=== PATIENT | male | born 1930 | race Caucasian/White ===

== ENCOUNTER → 2017-10-05 | Outpatient (CLI) | payer MEDICARE, OTHER ==
[~2017-10-05] MED LIST: ECASA PO; ENOX100P SQ; WARF5 PO
[2017-10-05 15:50] LABS: AUTOMATED NEUTROPHIL # 2.8 TH/MM3 (1.8-7.7); BASOPHIL # 0.1 TH/MM3 (0-0.2); BASOPHIL % 0.7 % (0.0-2.0); EOSINOPHIL # 0.1 TH/MM3 (0-0.4); EOSINOPHIL % 1.8 % (0.0-4.0); HEMATOCRIT 43.4 % (39.0-51.0); HEMOGLOBIN 14.6 GM/DL (13.0-17.0); LYMPHOCYTE # 4.1 TH/MM3 (1.0-4.8); MEAN CORPUSCULAR HEMOGLOBIN 30.6 PG (27.0-34.0); MEAN CORPUSCULAR HGB CONC 33.7 % (32.0-36.0); MEAN PLATELET VOLUME 10.2 FL (7.0-11.0); MONO % 13.4 % (0.0-8.0); MONOCYTE # 1.1 TH/MM3 (0-0.9); NEUT % 34.1 % (16.0-70.0); PLATELET COUNT 268 TH/MM3 (150-450); RED BLOOD COUNT 4.76 MIL/MM3 (4.50-5.90); RED CELL DISTRIBUTION WIDTH 15.3 % (11.6-17.2); WHITE BLOOD COUNT 8.3 TH/MM3 (4.0-11.0)
[2017-10-05 16:11] LABS: ALBUMIN 3.9 GM/DL (3.4-5.0); ALT (GPT) 23 U/L (12-78); AST (GOT) 28 U/L (15-37); BICARBONATE 23.1 MEQ/L (21.0-32.0); BLOOD UREA NITROGEN 28 MG/DL (7-18); CALCIUM 9.2 MG/DL (8.5-10.1); CHLORIDE 109 MEQ/L (98-107); CREATININE 1.57 MG/DL (0.60-1.30); GLOMERULAR FILTRATION RATE 42 ML/MIN (>89); GLUCOSE,FASTING 96 MG/DL (74-99); SODIUM (NA) 141 MEQ/L (136-145)
[2017-10-05 16:21] LABS: ALKALINE PHOSPHATASE 75 U/L (45-117); TOTAL BILIRUBIN ADULT 0.6 MG/DL (0.2-1.0)
== END ==
LOC: PLAB 10:06
PROVIDERS: ATTEND Family Medicine
DX: I48.91 Unspecified atrial fibrillation (principal); Z51.81 Encounter for therapeutic drug level monitoring
CPT/HCPCS: 36415; 80053; 84443; 85025

== ENCOUNTER 2018-05-04 17:03 | Inpatient (IN) ==
[2018-05-04] MEDS ORDERED: dilTIAZem Inj 125 MG in Sodium Chlor 0.9% Inj 100 ML IV.CONT PRN (18:43)
--- NOTE | 2018-05-04 18:49 | ED ---
HPI General Chief complaint: Extremity Problem,Nontraumatic Stated complaint: Rt arm pain Time Seen by Provider: 05/04/18 18:27 Source: patient Mode of arrival: ambulatory Limitations: no limitations History of Present Illness HPI Narrative: 87-year-old male with history of atrial fibrillation on Savaysa presents to the emergency department evaluation of pain and swelling to the right elbow that started today. He states the elbow is painful and has difficulty moving. Denies trauma but is unsure. Denies fever, chills, numbness or tingling of the extremity. MD Complaint: Reports extremity pain, joint swelling and joint paint Pain Consistency: constant Location: Reports right Quality: Reports aching Radiation: Reports none Relieving factors: immobilization Exacerbating factors: range of motion and palpation Associated symptoms: Reports denies other symptoms Related Data Home Medications Medication Instructions Recorded Confirmed acetaminophen [Tylenol Extra 500 mg PO Q4-6H PRN 05/04/18 05/04/18 Strength] edoxaban [Savaysa] 30 mg PO DAILY 05/04/18 05/04/18 losartan 50 mg PO DAILY 05/04/18 05/04/18 Allergies Allergy/AdvReac Type Severity Reaction Status Date / Time naproxen Allergy Severe Hypotension Verified 05/04/18 17:17 aspirin Allergy Mild Hypotension Verified 05/04/18 17:17 ALEVE Allergy Severe Hypotension Uncoded 05/04/18 17:17 Review of Systems ROS: all other systems reviewed are negative PMFSH Medical History Medical History Adrenal carcinoma (Acute) Arrhythmia (Acute) Atrial fibrillation (Acute) Hypertension (Acute) Lung cancer (Acute) Pulmonary asbestosis (Acute) Surgical History Surgical History Hx of total adrenalectomy (Acute) History of lung biopsy (Acute) History of tonsillectomy (Acute) Family History Family History Other Family history normal Social History Social History Substance History: No History of Abuse Smoking Status: Former smoker Tobacco Type: Cigarettes How Often Do You Have a Drink Containing Alcohol: Never Recent Travel in [place] within the Last 8 Weeks: No Recent Out of Country Travel within the Last 8 Weeks: No Immunization History Tetanus Immunization: Unsure Exam Narrative Exam Narrative: GENERAL: Well-developed, well-nourished in no apparent distress SKIN: Focused skin assessment warm/dry. HEAD: Atraumatic. Normocephalic. EYES: Pupils equal and round. No scleral icterus. No injection or drainage. ENT: No nasal bleeding or discharge. Mucous membranes pink and moist. NECK: Trachea midline. No JVD. CARDIOVASCULAR: Regular rate and rhythm. No murmur appreciated. RESPIRATORY: No accessory muscle use. Clear to auscultation. Breath sounds equal bilaterally. MUSCULOSKELETAL: No obvious deformities. No clubbing. No cyanosis. No edema. right elbow- erythema and tenderness of the olecranon process, motor and sensory normal. Limited flexion secondary to pain NEUROLOGICAL: Awake and alert. No obvious cranial nerve deficits. Motor grossly within normal limits. Normal speech. PSYCHIATRIC: Appropriate mood and affect; insight and judgment normal. Course Initial Documented Vital Signs Temperature 98.2 F 05/04/18 17:14 Pulse Rate 67 05/04/18 17:14 Respiratory Rate 20 05/04/18 17:14 Blood Pressure 191/89 H 05/04/18 17:14 Pulse Oximetry 96 05/04/18 17:14 Last Documented Vital Signs Temperature 98.2 F 05/04/18 17:14 Pulse Rate 68 05/04/18 21:46 Respiratory Rate 19 05/04/18 21:48 Blood Pressure 151/77 H 05/04/18 21:46 Pulse Oximetry 100 05/04/18 21:08 Medical Decision Making MDM Narrative Medical decision making narrative: 87-year-old male presents to the emergency department evaluation of a painful elbow that started today. He states he woke up and started having pain in his right elbow. As patient was being evaluated, it was noted that his heart rate was between 115 and 150 bpm and regular. Patient states he has a history of atrial fibrillation and often goes in an out of A fib. Patient denies chest pain or shortness of breath. I had a discussion with the family who stated he has not seen a patient service coordinator in approximately 3 years and his primary care physician, Dr. Albino Haas prescribes Savaysa. He denies history of ablation, MD. Administered diltiazem 20mg and started diltiazem drip at 10. Pt converted to sinus rhythm to rate 60-70 while discussing the plan. Discussed with my attending who recommended r/o of septic arthritis but more likely a hemarthrosis vs contusion of the right elbow. Labs are notable for WBC 14.8, BUN/Cr 24/1.51, ESR 14. Elbow xray without acute process. No evidence of joint effusion. Will admit patient for Paroxysmal a fib and right elbow pain. Medical Screen Exam Complete: Yes Emergency Medical Condition: Yes Differential Diagnosis Differential Diagnosis: Hemarthrosis, septic arthritis, olecranon bursitis Lab Data Result diagrams: 05/04/18 18:45 05/04/18 18:45 Lab Results 05/04/18 05/04/18 05/04/18 Range/Units 18:45 18:45 18:45 WBC 14.8 H (4.0-11.0) th/mm3 RBC 4.91 (4.50-5.90) mil/mm3 Hgb 15.1 (13.0-17.0) gm/dL Hct 45.0 (39.0-51.0) % MCV 91.7 (80.0-100.0) fL MCH 30.7 (27.0-34.0) pg MCHC 33.5 (32.0-36.0) % RDW 15.0 (11.6-17.2) % Plt Count 268 (150-450) th/mm3 MPV 9.6 (7.0-11.0) fL Prelim Diff (Auto) Slide review pending Neut % (Auto) 62.9 (16.0-70.0) % Lymph % (Auto) 18.4 (9.0-44.0) % [place] % (Auto) 17.7 H (0.0-8.0) % Eos % (Auto) 0.2 (0.0-4.0) % Baso % (Auto) 0.8 (0.0-2.0) % Neut # (Auto) 9.3 H (1.8-7.7) th/mm3 Lymph # (Auto) 2.7 (1.0-4.8) th/mm3 [place] # (Auto) 2.6 H (0.0-0.9) th/mm3 Eos # (Auto) 0.0 (0.0-0.4) th/mm3 Baso # (Auto) 0.1 (0.0-0.2) th/mm3 WBC Differential . Diff Scan Auto diff confirmed Differential Comment . Platelet Estimate Normal (Normal) Platelet Morphology Normal (Normal) RBC Morphology Normal (Normal) ESR (0-20) mm/hr PT 11.8 H (9.8-11.6) sec INR 1.2 Ratio APTT 36.4 H (24.3-30.1) sec Sodium 133 L (136-145) meq/L Potassium 4.6 (3.5-5.1) meq/L Chloride 102 (98-107) meq/L Carbon Dioxide 22.2 (21.0-32.0) meq/L Anion Gap 9 (5-15) meq/L BUN 24 H (7-18) mg/dL Creatinine 1.51 H (0.60-1.30) mg/dL Estimated GFR 44 L (>89) mL/min Random Glucose 119 H (74-106) mg/dL Calcium 9.6 (8.5-10.1) mg/dL Total Bilirubin 0.7 (0.2-1.0) mg/dL AST 29 (15-37) U/L ALT 35 (12-78) U/L Alkaline Phosphatase 99 (45-117) U/L Total Protein 9.1 H (6.4-8.2) g/dL Albumin 3.9 (3.4-5.0) g/dL 05/04/18 Range/Units 18:45 WBC (4.0-11.0) th/mm3 RBC (4.50-5.90) mil/mm3 Hgb (13.0-17.0) gm/dL Hct (39.0-51.0) % MCV (80.0-100.0) fL MCH (27.0-34.0) pg MCHC (32.0-36.0) % RDW (11.6-17.2) % Plt Count (150-450) th/mm3 MPV (7.0-11.0) fL Prelim Diff (Auto) Neut % (Auto) (16.0-70.0) % Lymph % (Auto) (9.0-44.0) % [place] % (Auto) (0.0-8.0) % Eos % (Auto) (0.0-4.0) % Baso % (Auto) (0.0-2.0) % Neut # (Auto) (1.8-7.7) th/mm3 Lymph # (Auto) (1.0-4.8) th/mm3 [place] # (Auto) (0.0-0.9) th/mm3 Eos # (Auto) (0.0-0.4) th/mm3 Baso # (Auto) (0.0-0.2) th/mm3 WBC Differential Diff Scan Differential Comment Platelet Estimate (Normal) Platelet Morphology (Normal) RBC Morphology (Normal) ESR 14 (0-20) mm/hr PT (9.8-11.6) sec INR Ratio APTT (24.3-30.1) sec Sodium (136-145) meq/L Potassium (3.5-5.1) meq/L Chloride (98-107) meq/L Carbon Dioxide (21.0-32.0) meq/L Anion Gap (5-15) meq/L BUN (7-18) mg/dL Creatinine (0.60-1.30) mg/dL Estimated GFR (>89) mL/min Random Glucose (74-106) mg/dL Calcium (8.5-10.1) mg/dL Total Bilirubin (0.2-1.0) mg/dL AST (15-37) U/L ALT (12-78) U/L Alkaline Phosphatase (45-117) U/L Total Protein (6.4-8.2) g/dL Albumin (3.4-5.0) g/dL Imaging Data Radiologist's impression: Elbow X-Ray 05/04/18 18:39 CONCLUSION: Osteoarthritis and osteopenia. No acute abnormality. Discharge Plan Discharge Disposition Patient Disposition: 30 Still Patient Discharge Condition Condition: Stable Discharge Details Diagnosis: Elbow pain, PAF (paroxysmal atrial fibrillation) Physicians Team ED Provider: Lino Mcgee ED Midlevel Provider: Hazel Alba Primary Care Provider: Alek Muñoz Attending Provider: Lashanda Youssef Discharge Interventions Interventions: Vital Signs Last Done: 05/04/18 21:46 Status ED Status: Admitted Patient
[2018-05-04 18:52] LABS: Baso # (Auto) 0.1 th/mm3 (0.0-0.2); Baso % (Auto) 0.8 % (0.0-2.0); Eos % (Auto) 0.2 % (0.0-4.0); Hemoglobin 15.1 gm/dL (13.0-17.0); Lymph # (Auto) 2.7 th/mm3 (1.0-4.8); Lymph % (Auto) 18.4 % (9.0-44.0); Mean Corpuscular HGB Conc 33.5 % (32.0-36.0); Mean Corpuscular Hemoglobin 30.7 pg (27.0-34.0); Mean Corpuscular Volume 91.7 fL (80.0-100.0); Mean Platelet Volume 9.6 fL (7.0-11.0); Mono # (Auto) 2.6 th/mm3 (0.0-0.9); Mono % (Auto) 17.7 % (0.0-8.0); Neut # (Auto) 9.3 th/mm3 (1.8-7.7); Neut % (Auto) 62.9 % (16.0-70.0); Platelet Count 268 th/mm3 (150-450); Red Blood Count 4.91 mil/mm3 (4.50-5.90); White Blood Count 14.8 th/mm3 (4.0-11.0)
[2018-05-04 19:04] LABS: Activated Partial Thrombo Time 36.4 sec (24.3-30.1); INR 1.2 Ratio; Prothrombin Time 11.8 sec (9.8-11.6)
--- NOTE | 2018-05-04 19:16 | XR ---
EXAM DATE: 05/04/2018 6:39 PM EDT AGE/SEX: 87 years / Male INDICATIONS: Pain and swelling in right elbow. CLINICAL DATA: This is the patient's initial encounter. Patient reports that signs and symptoms have been present for 1 day and indicates a pain score of 10/10. MEDICAL/SURGICAL HISTORY: None. None. COMPARISON: No prior exams available for comparison. FINDINGS: 3 views of the right elbow reveal advanced degenerative changes including osteophyte production. No f racture or dislocation. No joint effusion. Soft tissues are unremarkable. Osteopenia noted. CONCLUSION: Osteoarthritis and osteopenia. No acute abnormality. Electronically signed by: Charles Hand MD 05/04/2018 7:14 PM EDT
[2018-05-04 19:24] LABS: Platelet Estimate Normal (Normal); Platelet Morphology Normal (Normal); RBC Morphology Normal (Normal)
[2018-05-04 19:37] LABS: Albumin 3.9 g/dL (3.4-5.0); Anion Gap 9 meq/L (5-15); Aspartate Aminotransferase 29 U/L (15-37); Blood Urea Nitrogen 24 mg/dL (7-18); Calcium 9.6 mg/dL (8.5-10.1); Carbon Dioxide 22.2 meq/L (21.0-32.0); Chloride 102 meq/L (98-107); Glomerular Filtration Rate 44 mL/min (>89); Glucose,Random 119 mg/dL (74-106); Potassium 4.6 meq/L (3.5-5.1); Sodium 133 meq/L (136-145)
[2018-05-04 19:39] LABS: Alanine Aminotransferase 35 U/L (12-78); Alkaline Phosphatase 99 U/L (45-117); Total Protein 9.1 g/dL (6.4-8.2)
[2018-05-04] MEDS ORDERED: Acetaminophen 325 MG Tablet PO PRN (23:04)
[2018-05-04] MEDS ORDERED: Bisacodyl 10 MG Supp RECTAL PRN (23:04)
[2018-05-04] MEDS ORDERED: Heparin - SQ 10,000 UNITS/ML Vial SQ SCH (23:15)
--- NOTE | 2018-05-04 23:16 | P.HP ---
History of Present Illness Service: [facility] Primary Care Physician: Alek Muñoz MD History of Present Illness: 87-year-old male with a past medical history significant for atrial fibrillation anticoagulated on Savaysa, hypertension, history of adrenal cancer and newly diagnosed lung cancer undergoing treatment at [facility] (has not yet started chemotherapy) presents to the emergency department for evaluation of right upper extremity pain. The patient reports that when he awoke this morning his right arm was fine and that shortly after waking he started to develop a deep pain in his right upper extremity that is worse between the wrist and the elbow. He states the pain is worse with movement. It is tender to palpation. On arrival to the emergency department, the patient was found to be in atrial fibrillation with rapid ventricular response. He endorses associated heart palpitations. Denies chest pain or shortness of breath. 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 No abdominal pain. No nausea/vomiting/diarrhea. No lateralizing signs/symptoms. No fever/chills. Inpatient Certification: I certify that the inpatient services were ordered in accordance with Medicare regulations governing the order. This includes certification that hospital inpatient services are reasonable and necessary and in the case of services not specified as inpatient-only under 42 CFR 419.22(n), that they are appropriately provided as inpatient services in accordance to with the 2-midnight benchmark under 43 CFR 412.3(e) Estimated Total Length of Stay (Days): 2 Plans for Post Hospital Care: Not yet determined Review of Systems All other systems reviewed negative except as stated in HPI [facility] - History History Provided By: Patient - Medical History Medical History: Medical History (Last Reviewed 05/04/18 @ 23:10 by Lashanda Youssef MD) Adrenal carcinoma Arrhythmia Atrial fibrillation Hypertension Lung cancer Pulmonary asbestosis - Surgical History Surgical History: Surgical History (Last Updated 05/04/18 @ 23:11 by Lashanda Youssef MD) Hx of total adrenalectomy History of lung biopsy History of tonsillectomy - Family History Family History: Family History (Last Updated 05/04/18 @ 23:11 by Lashanda Youssef MD) Other Family history normal - Tobacco History Smoking Status: Former smoker Tobacco Type: Cigarettes - Alcohol History How Often Do You Have a Drink Containing Alcohol: Never - Substance Use History Substance History: No History of Abuse - Travel History Recent Travel in the [place] Within the Last 8 Weeks: No Recent Travel Out of the Country Within the Last 8 Weeks: No - Immunization History Tetanus Immunization: Unsure Medications and Allergies Active Medications: Active Medications Acetaminophen (Tylenol) 650 mg PO Q4H PRN PRN Reason: Temp > 100.4 Al Hydroxide/Mg Hydroxide (Milk Of Magnesia Liq) 30 ml PO Q12H PRN PRN Reason: Mild Constipation Bisacodyl (Dulcolax Supp) 10 mg RECTAL DAILY PRN PRN Reason: SEVERE CONSITIPATION Edoxaban (Savaysa) 30 mg PO DAILY [facility] Heparin Sodium (Porcine) (Heparin Inj) 5,000 units SQ Q8H CHANTELLE Diltiazem HCl 125 mg/ Sodium (Chloride) 125 mls @ 5 mls/hr IV.CONT TITRATE PRN ; Protocol PRN Reason: Per Protocol Last Titration: 05/04/18 21:49 Dose: 0 mg/hr, 0 mls/hr Lactulose (Lactulose Liq) 30 ml PO DAILY PRN PRN Reason: SEVERE CONSITIPATION Losartan Potassium (Cozaar) 50 mg PO DAILY [facility] Metoprolol Tartrate (Lopressor) 12.5 mg PO BID [facility] Ondansetron HCl (Zofran Inj) 4 mg IV.PUSH Q6H PRN PRN Reason: NAUSEA OR VOMITING Oxycodone/Acetaminophen (Percocet 5/325 Mg) 1 tab PO Q4H PRN PRN Reason: pain 6-10 Senna/Docusate Sodium (Rafaela-Colace) 1 tab PO BID [facility] Sennosides (Senokot) 17.2 mg PO Q12H PRN PRN Reason: Moderate Constipation Allergies Allergy/AdvReac Type Severity Reaction Status Date / Time naproxen Allergy Severe Hypotension Verified 05/04/18 17:17 aspirin Allergy Mild Hypotension Verified 05/04/18 17:17 ALEVE Allergy Severe Hypotension Uncoded 05/04/18 17:17 Home Medications Medication Instructions Recorded Confirmed Type acetaminophen [Tylenol Extra 500 mg PO Q4-6H PRN 05/04/18 05/04/18 History Strength] edoxaban [Savaysa] 30 mg PO DAILY 05/04/18 05/04/18 History losartan 50 mg PO DAILY 05/04/18 05/04/18 History Exam Vital signs: Vital Signs 05/04/18 17:14 05/04/18 18:11 05/04/18 19:09 Temperature 98.2 F Pulse Rate 67 137 H 149 H Respiratory Rate 20 21 18 Blood Pressure 191/89 H 160/84 H Pulse Oximetry 96 87 L 97 05/04/18 21:08 05/04/18 21:46 05/04/18 21:48 Temperature Pulse Rate 71 68 Respiratory Rate 18 19 Blood Pressure 159/78 H 151/77 H Pulse Oximetry 100 Intake & Output 05/04/18 05/04/18 05/05/18 06:59 18:59 06:59 Weight 88.451 kg Narrative: Gen.: No acute distress Head: Normocephalic. Atraumatic. EENT: Pupils equal round and reactive to light. Nose without drainage. Airway intact. Throat without injection. Cardiovascular: Regular rate. Irregularly irregular rhythm. No murmurs, rubs or gallops. Respiratory: Lungs clear to auscultation bilaterally. No wheezes or rhonchi. Abdomen: Soft, nontender, nondistended. No peritoneal signs. Musculoskeletal: No gross deformities. No edema. Right upper extremity extremely tender to palpation worse near the wrist. Skin: No obvious rashes or erythema. Neuro: Sensory and motor grossly intact. Cranial nerves II through XII grossly intact. Results - Labs CBC & Chem 7: 05/04/18 18:45 05/04/18 18:45 Labs: Laboratory Results - last 24 hr 05/04/18 05/04/18 05/04/18 18:45 18:45 18:45 WBC 14.8 H RBC 4.91 Hgb 15.1 Hct 45.0 MCV 91.7 MCH 30.7 MCHC 33.5 RDW 15.0 Plt Count 268 MPV 9.6 Prelim Diff (Auto) Slide review pending Neut % (Auto) 62.9 Lymph % (Auto) 18.4 [place] % (Auto) 17.7 H Eos % (Auto) 0.2 Baso % (Auto) 0.8 Neut # (Auto) 9.3 H Lymph # (Auto) 2.7 [place] # (Auto) 2.6 H Eos # (Auto) 0.0 Baso # (Auto) 0.1 WBC Differential . Diff Scan Auto diff confirmed Differential Comment . Platelet Estimate Normal Platelet Morphology Normal RBC Morphology Normal ESR PT 11.8 H INR 1.2 APTT 36.4 H Sodium 133 L Potassium 4.6 Chloride 102 Carbon Dioxide 22.2 Anion Gap 9 BUN 24 H Creatinine 1.51 H Estimated GFR 44 L Random Glucose 119 H Calcium 9.6 Total Bilirubin 0.7 AST 29 ALT 35 Alkaline Phosphatase 99 Total Protein 9.1 H Albumin 3.9 05/04/18 18:45 WBC RBC Hgb Hct MCV MCH MCHC RDW Plt Count MPV Prelim Diff (Auto) Neut % (Auto) Lymph % (Auto) [place] % (Auto) Eos % (Auto) Baso % (Auto) Neut # (Auto) Lymph # (Auto) [place] # (Auto) Eos # (Auto) Baso # (Auto) WBC Differential Diff Scan Differential Comment Platelet Estimate Platelet Morphology RBC Morphology ESR 14 PT INR APTT Sodium Potassium Chloride Carbon Dioxide Anion Gap BUN Creatinine Estimated GFR Random Glucose Calcium Total Bilirubin AST ALT Alkaline Phosphatase Total Protein Albumin - Imaging Impressions Elbow X-Ray 05/04/18 18:39 CONCLUSION: Osteoarthritis and osteopenia. No acute abnormality. Caprini VTE Risk Assessment Caprini VTE Risk Assessment: Moderate/High Risk (score >= 2) Caprini Risk Assessment Model: Point Value = 1 Point Value = 2 Point Value = 3 Point Value = 5 Age 41-60 Minor surgery BMI > 25 kg/m2 Swollen legs Varicose veins or History of unexplained or recurrent spontaneous Oral contraceptives or hormone replacement Sepsis (< 1 month) Serious lung disease, including pneumonia (< 1 month) Abnormal pulmonary function Acute myocardial infarction Congestive heart failure (< 1 month) History of inflammatory bowel disease Medical patient at bed rest Age 61-74 Arthroscopic surgery Major open surgery (> 45 min) Laparoscopic surgery (> 45 min) Malignancy Confined to bed (> 72 hours) Immobilizing plaster cast Central venous access Age >= 75 History of VTE Family history of VTE Factor V Leiden Prothrombin [id number] Lupus anticoagulant Anticardiolipin antibodies Elevated serum homocysteine Heparin-induced thrombocytopenia Other congenital or acquired thrombophilia Stroke (< 1 month) Elective arthroplasty Hip, pelvis, or leg fracture Acute spinal cord injury (< 1 month) Prophylaxis Regimen: Total Risk Factor Score Risk Level Prophylaxis Regimen 0-1 Low Early ambulation 2 Moderate Order ONE of the following: *Sequential Compression Device (SCD) *Heparin 5000 units SQ BID 3-4 Higher Order ONE of the following medications: *Heparin 5000 units SQ TID *Enoxaparin/Lovenox 40 mg SQ daily (WT < 150 kg, CrCl > 30 mL/min) *Enoxaparin/Lovenox 30 mg SQ daily (WT < 150 kg, CrCl > 10-29 mL/min) *Enoxaparin/Lovenox 30 mg SQ BID (WT < 150 kg, CrCl > 30 mL/min) AND/OR *Sequential Compression Device (SCD) 5 or more Highest Order ONE of the following medications: *Heparin 5000 units SQ TID (Preferred with Epidurals) *Enoxaparin/Lovenox 40 mg SQ daily (WT < 150 kg, CrCl > 30 mL/min) *Enoxaparin/Lovenox 30 mg SQ daily (WT < 150 kg, CrCl > 10-29 mL/min) *Enoxaparin/Lovenox 30 mg SQ BID (WT < 150 kg, CrCl > 30 mL/min) AND *Sequential Compression Device (SCD) Assessment and Plan - Plan Assessment/plan: 1. Atrial fibrillation with rapid ventricular response EKG significant for A. fib with RVR, pulse 135, right bundle branch block, no ST segment elevation or depression, personally reviewed Diltiazem bolus and drip, weaned in the ED for a heart rate of 60 Continue home Savaysa Start metoprolol 12.5 mg twice daily Telemetry 2. Right upper extremity pain Elbow x-ray negative for acute process, significant for osteoarthritis and osteopenia Forearm x-ray, right upper extremity ultrasound pending Percocet 3. Hypertension Continue home losartan 4. Kidney disease Creatinine 1.51, baseline Monitor renal function FEN Heart healthy diet Electrolytes: Monitor and replete as needed Savaysa
[2018-05-04] MEDS ORDERED: Sodium Chloride 0.9% 2 ML Flush PRN IV.FLUSH (23:26)
--- NOTE | 2018-05-04 23:45 | XR ---
EXAM DATE: 05/04/2018 11:07 PM EDT AGE/SEX: 87 years / Male INDICATIONS: Right forearm pain, no known trauma. CLINICAL DATA: This is the patient's initial encounter. Patient reports that signs and symptoms have been present for 1 day and indicates a pain score of 8/10. MEDICAL/SURGICAL HISTORY: None. None. COMPARISON: No prior exams available for comparison. FINDINGS: The radius and ulna appear grossly intact. The elbow and wrist joints are aligned. There are some hyp ertrophic change at the elbow region. There also appears to be some hypertrophic change at the first carpometacarpal region. No foreign body is seen. CONCLUSION: No acute abnormality is seen. Electronically signed by: Dave Baig MD 05/04/2018 11:44 PM EDT
[2018-05-05 06:21] LABS: Calcium 8.9 mg/dL (8.5-10.1); Carbon Dioxide 21.6 meq/L (21.0-32.0); Potassium 4.2 meq/L (3.5-5.1)
--- NOTE | 2018-05-05 06:41 | ECG ---
Date Performed: 05/04/2018 Time Performed: 20:01:00 PTAGE: 87 years EKG: Sinus rhythm RIGHT BUNDLE BRANCH BLOCK LEFT ANTERIOR FASCICULAR BLOCK ABNORMAL ECG Compared to prior electrocardi ogram, sinus rhythm has replaced probable atrial fibrillation with rapid response. DOCTOR: Fransisco Lee Interpretating Date/Time 05/05/2018 06:39:27
[2018-05-05 06:43] LABS: Baso # (Auto) 0.1 th/mm3 (0.0-0.2); Baso % (Auto) 0.5 % (0.0-2.0); Eos % (Auto) 0.1 % (0.0-4.0); Hematocrit 40.7 % (39.0-51.0); Hemoglobin 13.6 gm/dL (13.0-17.0); Lymph # (Auto) 4.1 th/mm3 (1.0-4.8); Lymph % (Auto) 23.5 % (9.0-44.0); Mean Corpuscular HGB Conc 33.4 % (32.0-36.0); Mean Corpuscular Hemoglobin 30.9 pg (27.0-34.0); Mean Corpuscular Volume 92.5 fL (80.0-100.0); Mean Platelet Volume 9.8 fL (7.0-11.0); Mono # (Auto) 5.7 th/mm3 (0.0-0.9); Neut # (Auto) 7.4 th/mm3 (1.8-7.7); Neut % (Auto) 42.9 % (16.0-70.0); Platelet Count 237 th/mm3 (150-450); White Blood Count 17.3 th/mm3 (4.0-11.0)
--- NOTE | 2018-05-05 06:48 | ECG ---
Date Performed: 05/04/2018 Time Performed: 18:13:48 PTAGE: 87 years EKG: ATRIAL FIBRILLATION WITH RAPID VENTRICULAR RESPONSE RIGHT BUNDLE BRANCH BLOCK LEFT ANTERIOR FASCICULAR BLOCK ABNORMAL ECG Compared to prior electrocardiogram, Atrial fibrillation has replaced Sinus rhythm . DOCTOR: Fransisco Lee Interpretating Date/Time 05/05/2018 06:47:46
[2018-05-05 08:05] LABS: Lymphocytes 21 % (9-44); Monocytes 22 % (0-8); Myelocytes 1 % (0-0); Platelet Estimate Normal (Normal); Platelet Morphology Normal (Normal); RBC Morphology Normal (Normal)
[2018-05-05] MEDS ORDERED: Sodium Chloride 0.9% 2 ML Flush BID IV.FLUSH SCH (09:00)
[2018-05-05] MEDS ORDERED: EDOXABAN 30 MG PO SCH (09:00)
[2018-05-05] MEDS ORDERED: Metoprolol Tartrate 25 MG Tablet PO SCH (09:00)
[2018-05-05] MEDS ORDERED: Senna/Docusate Sodium 8.6/50 MG Tablet PO SCH (09:00)
--- NOTE | 2018-05-05 09:09 | US ---
EXAM DATE: 05/05/2018 12:00 AM EDT AGE/SEX: 87 years / Male INDICATIONS: Right arm pain. CLINICAL DATA: This is the patient's initial encounter. Patient reports that signs and symptoms have been present for 2 days and indicates a pain score of 10/10. MEDICAL/SURGICAL HISTORY: Hypertension. Carcinoma, lung. A-fib. Pulmonary asbestosis. Tonsill ectomy. Lung biopsy. COMPARISON: No prior exams available for comparison. FINDINGS: The vessels are compressible and augmentation response is documented. No filling defects a re seen. The flow is phasic with respiration. Other: None. CONCLUSION: 1. No sonographic evidence for right upper extremity DVT. Electronically signed by: Rodrigo Licona MD 05/05/2018 9:08 AM EDT
[2018-05-05] MEDS ORDERED: Gadobutrol PF 10 MMOL/10 ML Vial (for RAD) IV.SIG ONE (11:49)
--- NOTE | 2018-05-05 11:57 | MR ---
EXAM DATE: 05/05/2018 11:10 AM EDT AGE/SEX: 87 years / Male INDICATIONS: . RIght shoulder pain radiating down arm with no injury. CLINICAL DATA: This is the patient's initial encounter. Patient reports that signs and symptoms have been present for 3 days and indicates a pain score of 6/10. MEDICAL/SURGICAL HISTORY: Hypertension. Carcinoma, lung. abdominal cancer Tonsillectomy. deric ract surgery, adrenal gland removed, knee surgery COMPARISON: No prior exams available for comparison. TECHNIQUE: Multiplanar, multisequence MRI examination was performed without and with 9 ml Gadavist (gadobutrol) contrast as a single exam dose. FINDINGS: Extremely limited examination due to motion artifact on essentially all of the images. There is evide nce of joint fluid in the subacromial and subdeltoid bursa. There is also elevation of the femoral he ad with narrowing of the space between the acromion process and the femoral head. There are some dege nerative changes noted at the shoulder joint as well as the AC joint. No definite bone marrow edema i s demonstrated to suggest a microfracture. No joint dislocation is demonstrated. There is normal sign al intensity of the surrounding muscle structures. CONCLUSION: 1. There is elevation of the femoral head with narrowing of the space between the humeral head and t he acromion process consistent with shoulder impingement syndrome. There is also fluid within the sub acromial and subdeltoid bursa consistent with a full-thickness rotator cuff tear. 2. There is moderate diffuse degenerative arthritis changes throughout the shoulder joint and AC kassie nt. 3. Limited study due to motion artifact on essentially all the images. Electronically signed by: Neo Raman MD 05/05/2018 11:56 AM EDT
[2018-05-05] MEDS ORDERED: Acetaminophen 500 MG Tablet PO PRN (13:03)
[2018-05-05 13:42] VITALS: BP 152/73; RESP 20; TEMP 98.3; O2SAT 95
--- NOTE | 2018-05-05 16:05 | P.PN ---
Subjective Interval history: Nursing denies any deterioration since last night. Patient still has pretty substantial right arm pain. But he is very adamant about wanting to go home despite the pain. Physical Exam Vital signs: Vital Signs 05/04/18 17:14 05/04/18 18:11 05/04/18 19:09 Temperature 98.2 F Pulse Rate 67 137 H 149 H Respiratory Rate 20 21 18 Blood Pressure 191/89 H 160/84 H Pulse Oximetry 96 87 L 97 05/04/18 21:08 05/04/18 21:46 05/04/18 21:48 Temperature Pulse Rate 71 68 Respiratory Rate 18 19 Blood Pressure 159/78 H 151/77 H Pulse Oximetry 100 05/04/18 23:57 05/05/18 02:36 05/05/18 07:00 Temperature 97.8 F Pulse Rate 68 59 L 58 L Respiratory Rate 18 20 Blood Pressure 123/66 159/72 H 148/66 H Pulse Oximetry 97 96 98 05/05/18 07:05 05/05/18 09:15 05/05/18 10:55 Temperature 97.8 F 97.7 F Pulse Rate 58 L 68 63 Respiratory Rate 20 18 Blood Pressure 151/71 H 143/81 H Pulse Oximetry 98 05/05/18 12:00 Temperature 98.3 F Pulse Rate 64 Respiratory Rate 20 Blood Pressure 152/73 H Pulse Oximetry 95 Intake & Output 05/04/18 05/05/18 05/05/18 18:59 06:59 18:59 Weight 88.451 kg Narrative: Unable to abduct right shoulder greater than 45 degrees, unable to even perform basics of empty beer can test with right arm, no tenderness noted in the bicipital tendon groove Heart sounds are regular rate Results - Labs CBC & Chem 7: 05/05/18 04:33 05/05/18 04:33 Laboratory Results - last 24 hr 05/04/18 05/04/18 05/04/18 18:45 18:45 18:45 WBC 14.8 H RBC 4.91 Hgb 15.1 Hct 45.0 MCV 91.7 MCH 30.7 MCHC 33.5 RDW 15.0 Plt Count 268 MPV 9.6 Prelim Diff (Auto) Slide review pending Neut % (Auto) 62.9 Lymph % (Auto) 18.4 [place] % (Auto) 17.7 H Eos % (Auto) 0.2 Baso % (Auto) 0.8 Neut # (Auto) 9.3 H Lymph # (Auto) 2.7 [place] # (Auto) 2.6 H Eos # (Auto) 0.0 Baso # (Auto) 0.1 WBC Differential . Diff Scan Auto diff confirmed Seg Neuts % (Manual) Band Neuts % (Manual) Lymphocytes % (Manual) Monocytes % (Manual) Myelocytes % (Man) Abs Neuts (Manual) Differential Comment . Platelet Estimate Normal Platelet Morphology Normal RBC Morphology Normal ESR PT 11.8 H INR 1.2 APTT 36.4 H Sodium 133 L Potassium 4.6 Chloride 102 Carbon Dioxide 22.2 Anion Gap 9 BUN 24 H Creatinine 1.51 H Estimated GFR 44 L Random Glucose 119 H Calcium 9.6 Total Bilirubin 0.7 AST 29 ALT 35 Alkaline Phosphatase 99 Total Protein 9.1 H Albumin 3.9 05/04/18 05/05/18 05/05/18 18:45 04:33 04:33 WBC 17.3 H RBC 4.40 L Hgb 13.6 Hct 40.7 MCV 92.5 MCH 30.9 MCHC 33.4 RDW 15.0 Plt Count 237 MPV 9.8 Prelim Diff (Auto) Slide review pending Neut % (Auto) 42.9 Lymph % (Auto) 23.5 [place] % (Auto) 33.0 H Eos % (Auto) 0.1 Baso % (Auto) 0.5 Neut # (Auto) 7.4 Lymph # (Auto) 4.1 [place] # (Auto) 5.7 H Eos # (Auto) 0.0 Baso # (Auto) 0.1 WBC Differential Manual diff final Diff Scan Seg Neuts % (Manual) 55 Band Neuts % (Manual) 1 Lymphocytes % (Manual) 21 Monocytes % (Manual) 22 H Myelocytes % (Man) 1 H Abs Neuts (Manual) 9.9 H Differential Comment . Platelet Estimate Normal Platelet Morphology Normal RBC Morphology Normal ESR 14 PT INR APTT Sodium 134 L Potassium 4.2 Chloride 103 Carbon Dioxide 21.6 Anion Gap 9 BUN 24 H Creatinine 1.50 H Estimated GFR 44 L Random Glucose 133 H Calcium 8.9 Total Bilirubin AST ALT Alkaline Phosphatase Total Protein Albumin - Imaging Impressions Elbow X-Ray 05/04/18 18:39 CONCLUSION: Osteoarthritis and osteopenia. No acute abnormality. Forearm X-Ray 05/04/18 23:07 CONCLUSION: No acute abnormality is seen. Shoulder MRI 05/05/18 00:00 CONCLUSION: 1. There is elevation of the femoral head with narrowing of the space between the humeral head and the acromion process consistent with shoulder impingement syndrome. There is also fluid within the subacromial and subdeltoid bursa consistent with a full-thickness rotator cuff tear. 2. 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 3. Limited study due to motion artifact on essentially all the images. Venous Doppler Study 05/05/18 00:00 CONCLUSION: 1. No sonographic evidence for right upper extremity DVT. Assessment and Plan - Plan 87-year-old white male who was admitted with A. fib with RVR as well as right upper extremity pain A. fib with RVR is now stabilized with a pulse in the 60s with low-dose Lopressor, patient will be discharged on this twice daily. To continue's cariaysa MRI findings discussed with Dr. Wong from orthopedic surgery, recommend conservative management, to follow-up outpatient with orthopedics. Findings and plan discussed with patient and his , all questions answered. Patient has met maximal benefit from hospitalization is clinically stable for discharge.
[2018-05-05 16:52] VITALS: PULSE 55
== END 2018-05-05 17:50 | disposition home or self-care (01) ==
LOC: NEPC 17:03 → NEDA 20:09 → NEDH 05-05 01:47 → NEDA 05-05 11:16 → N04 05-05 12:17
PROVIDERS: ADMIT Hospitalist; ATTEND Hospitalist